=== PATIENT | male | born 1965 | race Caucasian/White ===

== ENCOUNTER 2025-04-15 09:56 | Outpatient (OUT) | payer OTHER, SELFPAY ==
--- NOTE | 2025-04-15 10:03 | ECG_ITS ---
[facility] Test Date: 2025-04-15 Pat Name: FARHAN MARCUS Department: Room: - Gender: Male Formation Fracturing Operator: : 1965 Requested By: ROBERT VALLEJO Order Number: [id number] Reading MD: GIOVANNI DUKE M.D. Measurements Intervals [place] Rate: 75 P: 49 VT: 165 QRS: 35 QRSD: 107 T: -9 QT: 442 QTc: 496 Interpretive Statements SINUS RHYTHM NONSPECIFIC T-WAVE ABNORMALITY PROLONGED QT INTERVAL Abnormal ECG No previous ECG available for comparison Electronically Signed On 04-15-2025 17:53:10 EDT by GIOVANNI DUKE M.D.
--- NOTE | 2025-04-15 10:20 | XR_ITS ---
The [address] [address] Patient Name: FARHAN MARCUS MRN: [id number] date: 1965 Sex: M Assigned Patient Location: [facility] Current Patient Location: [facility] Accession/Order Number: [id number] Exam Date: 04/15/2025 11:14 Report Date: 04/15/2025 11:16 At the request of: ROBERT VALLEJO MD Procedure: XR chest 2V PA AND LATERAL CHEST: CLINICAL HISTORY: Preop clearance COMPARISON: None There is a right pericardial fat pad. There is no focal parenchymal consolidation, effusion or pneumothorax. The cardiac, hilar and mediastinal silhouettes are within normal limits. There is no vascular congestion. The visualized bony thorax is intact. XR/XR chest 2V IMPRESSION: NO ACUTE CARDIOPULMONARY ABNORMALITY. Impression dictated by: Jocelyn Johnson M.D. 04/15/2025 11:16 AM Dictation Location: [place] [address] Electronically authenticated by: [id number] Y Date: 04/15/2025 11:16
[2025-04-15 11:07] LABS: Basophils Absolute Auto 0.1 10^3/uL (0.0-0.1); Basophils Percent Auto 0.7 % (0.2-2.0); Eosinophils Absolute Auto 0.1 10^3/uL (0.0-0.7); Eosinophils Percent Auto 1.6 % (0.9-7.0); Hematocrit 44.5 % (42.0-54.0); Hemoglobin 15.2 g/dL (14.0-18.0); Immature Granulocytes Abs Auto 0.01 10^3/uL (0.00-0.03); Immature Granulocytes Pct Auto 0.1 % (0.0-0.5); Lymphocytes Percent Auto 29.5 % (20.5-60.0); Mean Corpuscular HGB Conc 34.2 g/dL (29.9-35.2); Mean Corpuscular Hemoglobin 32.7 pg (25.9-34.0); Mean Corpuscular Volume 95.7 fL (80.0-94.0); Monocytes Absolute Auto 0.5 10^3/uL (0.3-0.8); Monocytes Percent Auto 7.8 % (1.7-12.0); Neutrophils Percent Auto 60.3 % (43.0-75.0); Platelet Count 188 10^3/uL (150-450); Red Blood Count 4.65 10^6/uL (4.70-6.10); Red Cell Distribution Width 14.3 % (11.0-15.0); White Blood Count 6.7 10^3/uL (4.0-11.0)
--- NOTE | 2025-04-15 11:18 | PM.PRESUREVA ---
History of Present Illness History of Present Illness Chief complaint: Right Kidney Stones Narrative: Patient presents for presurgical testing. The patient states he has been diagnosed with a kidney stone after hematuria workup. The patient states he has not had any visible blood in his urine and denies any urinary complaints today. Review of Systems ROS Narrative REVIEW OF SYSTEMS: Negative except as stated in HPI, ten or more systems reviewed. Constitutional: No fever, chills, weakness ENT: No sore throat or epistaxis Cardiovascular: No edema, chest pain, palpitations, or activity intolerance Respiratory: No shortness of breath, cough, or wheezing Musculoskeletal: No joint pain or swelling Gastrointestinal: No abdominal pain, constipation, diarrhea, or vomiting Genitourinary: No dysuria or hematuria Neurological: No numbness, tingling, weakness, or headache Psychiatric: No mood changes PFSH PFS Medical History (Updated 04/15/25 @ 10:39 by Maddi Hernandez NP) Angina pectoris (2010) ?I20.9 - Angina pectoris, unspecified (ICD-10) Prostatitis ?N41.9 - Inflammatory disease of prostate, unspecified (ICD-10) Plantar fasciitis ?M72.2 - Plantar fascial fibromatosis (ICD-10) Sleep apnea ?G47.30 - Sleep apnea, unspecified (ICD-10) Depression ?F32.A - Depression, unspecified (ICD-10) Lumbar radiculopathy ?M54.16 - Radiculopathy, lumbar region (ICD-10) Hypogonadism Hyperlipidemia ?E78.5 - Hyperlipidemia, unspecified (ICD-10) Hearing loss ?H91.90 - Unspecified hearing loss, unspecified ear (ICD-10) Glaucoma ?H40.9 - Unspecified glaucoma (ICD-10) Anxiety ?F41.9 - Anxiety disorder, unspecified (ICD-10) Erectile dysfunction ?N52.9 - Male erectile dysfunction, unspecified (ICD-10) Diabetic polyneuropathy ?E11.42 - Type 2 diabetes mellitus with diabetic polyneuropathy (ICD-10) Diabetes ?E11.9 - Type 2 diabetes mellitus without complications (ICD-10) Insomnia ?G47.00 - Insomnia, unspecified (ICD-10) CAD (coronary artery disease) ?I25.10 - Atherosclerotic heart disease of [place] coronary artery without angina pectoris (ICD-10) Hypertension ?I10 - Essential (primary) hypertension (ICD-10) Kidney stones ?N20.0 - Calculus of kidney (ICD-10) Surgical History (Updated 04/15/25 @ 10:38 by Maddi Hernandez NP) History of heart artery stent (2016) ?Z95.5 - Presence of coronary angioplasty implant and graft (ICD-10) History of heart artery stent (2010) ?Z95.5 - Presence of coronary angioplasty implant and graft (ICD-10) History of colonoscopy ?Z98.890 - Other specified postprocedural states (ICD-10) S/P cataract extraction and insertion of intraocular lens ?Z98.49 - Cataract extraction status, unspecified eye (ICD-10) ?Z96.1 - Presence of intraocular lens (ICD-10) H/O eye surgery ?Z98.890 - Other specified postprocedural states (ICD-10) Hx of tonsillectomy ?Z90.89 - Acquired absence of other organs (ICD-10) History of vasectomy ?Z98.52 - Vasectomy status (ICD-10) History of hernia repair ?Z98.890 - Other specified postprocedural states (ICD-10) ?Z87.19 - Personal history of other diseases of the digestive system (ICD-10) H/O cystoscopy ?Z98.890 - Other specified postprocedural states (ICD-10) History of appendectomy ?Z90.49 - Acquired absence of other specified parts of digestive tract (ICD-10) Family History (Updated 04/15/25 @ 10:36 by Maddi Hernandez NP) Other Family history of myocardial infarction Social History (Updated 04/15/25 @ 10:32 by Maddi Hernandez NP) Within the past year, how often did you have a drink containing alcohol: 4 or more times a week Within the past year, how many standard drinks containing alcohol did you have on a typical day: 1 or 2 Total score: 0 Score interpretation: A score less than 4 is consistent with normal alcohol consumption. 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 Highest level of school completed/degree received: Associate degree: occupational, technical, vocational program Meds Home Medications and Allergies Home Medications ?Medication ?Instructions ?Recorded ?Confirmed ?Type aspirin 81 mg tablet,delayed 81 mg PO DAILY 04/15/25 04/15/25 History release (Adult Aspirin Regimen) atorvastatin 20 mg tablet 20 mg PO DAILY 04/15/25 04/15/25 History dorzolamide 22.3 mg-timolol 6.8 1 drp ophthalmic (eye) BID 04/15/25 04/15/25 History mg/mL eye drops (Cosopt) lisinopril 10 mg tablet 10 mg PO QPM 04/15/25 04/15/25 History metformin 1,000 mg tablet 1,000 mg PO DAILY 04/15/25 04/15/25 History metoprolol tartrate 50 mg tablet 50 mg PO Q12H 04/15/25 04/15/25 History multivitamin (Daily Multi-Vitamin 1 tab PO DAILY 04/15/25 04/15/25 History tablet) pioglitazone 45 mg tablet 45 mg PO DAILY 04/15/25 04/15/25 History sertraline 50 mg tablet 50 mg PO DAILY 04/15/25 04/15/25 History tafluprost (PF) 0.0015 % eye drops 1 drp ophthalmic (eye) DAILY 04/15/25 04/15/25 History in a dropperette (Zioptan (PF)) tamsulosin 0.4 mg capsule (Flomax) 0.4 mg PO DAILY 04/15/25 04/15/25 History testosterone cypionate 200 mg/mL 200 mg IM .qmonth 04/15/25 04/15/25 History intramuscular oil tirzepatide 2.5 mg/0.5 mL 2.5 mg subcut QWEEK 04/15/25 04/15/25 History subcutaneous pen injector (Mehulunbrittniro) Allergies Allergy/AdvReac Type Severity Reaction Status Date / Time bupropion (From Wellbutrin) Allergy Agitated Verified 04/15/25 10:18 Exam Narrative Exam Narrative: Constitutional: Awake, alert, comfortable, well-appearing, nontoxic, interactive, vital signs as charted Head: Normocephalic, atraumatic Neck: Supple, normal appearance, normal range of motion, no meningeal signs, no lymphadenopathy Respiratory: No respiratory distress, breath sounds clear Cardiovascular: Regular rate and rhythm, strong and regular heart tones Abdomen: Nontender, normal bowel sounds, soft, no CVA tenderness Musculoskeletal: Normal gait, no swelling or edema Skin: No rashes or induration, no lesions, only visible skin inspected Neuro: No neurological deficits, normal sensation Psychiatric: Oriented ?3, normal affect Assessment and Plan Assessment and Plan (1) Kidney stones: Plan Right ESWL, possible cystoscopy with right stent placement scheduled with Dr. Satnos April 29, 2025.
[2025-04-15 11:20] LABS: Anion Gap 12.2; Calcium 9.2 mg/dL (8.5-10.1); Carbon Dioxide 27.5 mmol/L (21.0-32.0); Chloride 104 mmol/L (98-107); Estimated GFR (African America >60 (>=60 mL/min/1.73m^2); Estimated GFR (Non-African Ame >60 (>=60 mL/min/1.73m^2); Glucose 118 mg/dL (74-106); Potassium 3.7 mmol/L (3.5-5.1); Sodium 140 mmol/L (136-145)
[2025-04-15 11:26] LABS: INR 1.03; Partial Thromboplastin Time 29.9 sec (22.3-36.2); Prothrombin Time 10.9 sec (9.0-11.6)
== END 2025-04-15 09:57 | disposition home or self-care (01) ==
LOC: PST 09:57
PROVIDERS: PCP Family Medicine; Visit Provider Urology
DX: Z01.810 Encounter for preprocedural cardiovascular examination (principal); Z01.812 Encounter for preprocedural laboratory examination; Z01.818 Encounter for other preprocedural examination; N20.0 Calculus of kidney; E78.5 Hyperlipidemia, unspecified
CPT/HCPCS: 36415; 71046; 80048; 85025; 85610; 85730; 93005; G0463

== ENCOUNTER 2025-04-29 09:53 | Day surgery (SDC) | payer OTHER, SELFPAY ==
--- OUTSIDE RECORDS SUMMARY | 2015-07-08 10:30 | XMS_ITS | Encounter Summary ---
Author Organization [facility] Address [address] [place] [address] Care Team Providers Care Managed Care Coordinator Name Role Phone Ismael Arteaga MD Primary Care Provider [phone] [phone] Encounter Details Date Type Department Care Team (Late st Contact Info) Description 07/08/2015 10:30 AM EDT Hospital Encounter [facility] Occupational Therapy [address] [place] [address] Ismael Arteaga MD [address] [place] [address] Margaret Cosme OT Social History Tobacco Use Types Packs/Day Years Used Date Smoking Tobacco: Former Cigarettes Q uit: 2006 Smokeless Tobacco: Never Alcohol Use Standard Drinks/Week Comments Yes 0 (1 standard drink = 0.6 oz pur e alcohol) Sex and Gender Information Value Date Recorded Sex Assigned at Not on file Legal Sex Male 7:46 PM EST Gender Identity Not on file Sexual Orientation Not on file documented as of this encounter Progress Notes * Margaret Dillon OT - 07/08/2015 12:16 PM EDT Occupational Therapy Fabricated new R wrist/thumb spica splint for pt d/t complications w/ splint made yesterday 07/07/15. Pt reminded of splint care and wear schedule, verbalizes understanding. No additional charges thisdate. EVELIA Leary OTR/Adri 07/08/15 10:35am-11:15am documented in this encounter Plan of Treatment Not on file documented as of this encounter Visit Diagnoses Not on filedocumented in this encounter Care Teams Managed Care Coordinator Relationship Specialty Start Date End Date Ismael Arteaga MD PCP - General 06/29/15 documented as of this encounter
--- OUTSIDE RECORDS SUMMARY | 2015-07-19 14:45 | XMS_ITS | Encounter Summary ---
Author Organization [facility] Address [address] [place] [address] Care Team Providers Care Linux Systems Administrator Name Role Phone Ismael Arteaga MD Primary Care Provider [phone] [phone] Encounter Details Date Type Department Care Team (Late st Contact Info) Description 07/19/2015 2:45 PM EDT Hospital Encounter [facility] Occupational Therapy [address] [place] [id number] Ismael Arteaga MD [address] [place] [address] Margaret Cosme, OT Social History Tobacco Use Types Packs/Day [...] Progress Notes * Margaret Dillon OT - 07/19/2015 4:27 PM EDT Images from the original note were not included. [facility] Outpatient Occupational Therapy Daily Note Date: 07/19/2015 Referring Practitioner: Dr. Ismael Arteaga Diagnosis: Right De Quervain's Tenosynovitis & Right Carpal Tunnel Syndrome Onset Date: 07/05/15 OT Insurance Information: POC expires 08/09/15 Total # of Visits Approved: 12 Per Physician Order Total # of Visits to Date: 5 No Show: 0 Canceled Appointment: 0 Pre-Treament Pain: Pain at present: 0 Subjective: Pt states he has an interview for a job in [place] at [employer] Objective Exercises/Modalities: See DocFlow Sheet Assessment Comments: Pt states he has appointment w/ Dr. Arteaga on Jul.28. Pt states he has done only half ofhis HEP, states I haven't done as much as I probably should . When asked how often pt is wearing thumb/wrist spica splint, pt truthfully answers Probably only a couple hours a day . Pt states he isnot wearing splint during activities, states I can't do anything with it on, so I take it off . Ptdenies any pain w/ activity when not wearing it. Pt denies any pain, states I just have tingling & some numbess in my fingers . Specifically D3 & D4, denies any pain in the thumb or wrist. Tolerates joint blocking to thumb w/o any pain. Pt completes fine motor tasks with use of digits and thumb and states no pain. Pt completes screws & washers activity, pt completes activity w/ ease and no c/o pain with activity. Pt states he feels he doesn't think therapy is necessary. Pt has shown no major deficits in ROM or strength, encouraged pt to attend appointment w/ Dr. Arteaga and then wewill discuss possible d/c from OT based on physicians recommendations. 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 Time In: 1500 Time Out: 1545 Timed Code Treatment Minutes: 37 Minutes Total Treatment Time: 45 Margaret Dillon Therapy License Number: MOT, OTR/L Date: 07/19/2015 documented in this encounter Plan of Treatment Not on file documented as of this encounter Visit Diagnoses Not on filedocumented in this encounter Care Teams Linux Systems Administrator Relationship Specialty Start Date End Date Ismael Arteaga MD PCP - General 06/29/15 documented as of this encounter
[2025-04-15 11:05] VITALS: BP 121/78; PULSE 79; TEMP 36.5; O2SAT 97; BMI 34.2
[2025-04-29] VITALS (10 sets, daily range): BP systolic 114–167; BP diastolic 73–89; PULSE 55–85; TEMP 36.1–36.2; O2SAT 92–97; BMI 34.7
--- NOTE | 2025-04-29 08:45 | XR_ITS ---
The [address] [address] Patient Name: FARHAN MARCUS MRN: [id number] date: 1965 Sex: M Assigned Patient Location: [facility] Current Patient Location: [facility] Accession/Order Number: [id number] Exam Date: 04/29/2025 10:24 Report Date: 04/29/2025 10:27 At the request of: ROBERT VALLEJO MD Procedure: XR abdomen 1V SINGLE VIEW ABDOMEN CLINICAL DATA: Preoperative planning. Kidney stones. COMPARISON: None Supine views of the abdomen and pelvis were obtained. There is mild air and stool within the colon. There is small bowel air, without disproportionate distention. No definite radiopaque renal stones are visualized in the left. On the right, there are 2 stones at the lower portion of the kidney in close proximity measuring 12 and 9 mm in size. There is also question of a third tiny stone on that side measuring 3 mm . There are no suspect ureteral stones. No soft tissue masses are seen. There are minor degenerative changes at the spine. XR/XR abdomen 1V IMPRESSION: RIGHT NEPHROLITHIASIS. Impression dictated by: Jocelyn Johnson M.D. 04/29/2025 10:27 AM Dictation Location: [place] [address] Electronically authenticated by: [id number] Y Date: 04/29/2025 10:27
--- OUTSIDE RECORDS SUMMARY | 2025-04-29 09:56 | XMS_ITS | Clinical Summary ---
Author Organization [facility] Address [address] [place] [address] Care Team Providers Care Crusher Screen Repairer Name Role Phone Ismael Arteaga MD Primary Care Provider [phone] [phone] Allergies Active Allergy Reactions Criticality Noted Date Comments Bupropion Unknown Medium 02/19/2022 Medications metFORMIN (GLUMETZA) 1000 MG (MOD) 24 hr tablet Take 1 (one) tablet (1,000 mg total) by mouth daily with breakfast . Active lisinopril (PRINIVIL,ZESTR IL) 5 MG tablet Take 1 (one) tablet (5 mg total) by mouth daily . Active atorvastatin (LIPITOR) 10 MG tablet Take 2 (two) tablets (20 mg total) by mouth at bedtime . Active latanoprost (XALATAN) 0.005 % ophthalmic solution Administer 1 (one) drop to both eyes nightly . Active dorzolamide-waleska oloL (COSOPT) 22.3-6.8 mg/mL ophthalmic solution Administer 1 (one) drop to both eyes 2 (two) times a day . Active metoprolol tartrate (LOPRESSOR) 50 MG tablet Take 1 (one) tablet (50 mg total) by mouth 2 (two) times a day . Active pioglitazone (ACTOS) 45 MG tablet Take 1 (one) tablet (45 mg total) by mouth nightly . Active aspirin 81 MG EC tablet Take 1 (one) tablet (81 mg total) by mouth daily . Active sertraline (Zoloft) 25 MG tablet Take 2 (two) tablets (50 mg total) by mouth nightly . Active multivitamin with minerals tablet Take 1 (one) tablet by mouth daily . Active testosterone (ANDROGEL) 12.5 mg/ 1.25 gram (1 %) GlPm daily . 3 Active dorzolamide-waleska olol, PF, (Cosopt, PF,) 2-0.5 % Dpet Administer 1 drop to both eyes 2 (two) times a day . 60 each 11 4 Active tafluprost, PF, (Zioptan, PF,) 0.0015 % Dpet Administer 1 drop to both eyes at bedtime . 60 each 11 4 Active Active Problems Problem Noted Date Diagnosed Date Primary open angle glaucoma (POAG) of left eye, moderate stage 05/14/2024 Nuclear sclerotic cataract of both eyes 03/30/20 24 Primary open angle glaucoma (POAG) of right eye, moderate stage 08/12/2023 Family History * Patient is adopted Medical History Relation Comments Heart disease Brother Lung cancer Brother Glaucoma Neg Hx Macular degeneration Neg Hx Retinal detachment Neg Hx Relation Status Comments Brother Social History Tobacco Use Types Packs/Day Years Used Date Smoking Tobacco: Former Cigarettes 1.5 20 1 986 - 2005 Smokeless Tobacco: Never Tobacco Cessation:Counseling Given: Not Answered Alcohol Use Standard Drinks/Week Comments Yes 0 (1 standard drink = 0.6 oz pur e alcohol) wiskey-1-2 glass every night AUDIT-C Answer Date Recorded Frequency of Alcohol Consumption Never 05/24/2019 Average Number of Drinks Not on file 019 Frequency of Binge Drinking Not on file 04/28 Sex and Gender Information Value Date Recorded Sex Assigned at Not on file Legal Sex Male 6:25 PM EDT Gender Identity Male 05/24/2019 10:05 AM EDT Sexual Orientation Straight 05/24/2019 10 :16 AM EDT Last Filed Vital Signs Vital Sign Reading Time Taken Comments Blood Pressure 157/86 06/03/2024 2:01 PM EDT Pulse 65 06/03/2024 2:02 PM EDT Temperature 36.4 C (97.6 F) 06/03/2024 2:01 PM EDT Respiratory Rate 12 06/03/2024 2:01 PM EDT Oxygen Saturation 93% 06/03/2024 2:02 PM EDT Inhaled Oxygen Concentration - - Weight 104.3 kg (230 lb) 05/26/2024 4:21 PM EDT Height 175.3 cm (5' 9 ) 05/26/2024 4:21 PM EDT Body Mass Index 33.97 05/26/2024 4:21 PM EDT Plan of Treatment Upcoming Encounters Date Type Department Care Team (Late st Contact Info) Description 05/28/2025 10:30 AM EDT Office Visit [facility] Ophthalmology [address] [place] [address] Brandon Spicer MD [address] [place] [address] Health Maintenance Due Date Last Done Comments A1C 1965 CT Colonography 1965 Colonoscopy 1965 Colorectal Cancer Screening/Monitoring 1965 Fecal DNA 1965 Fecal occult blood test (FOBT,FIT) 1965 PSA Level 1965 Wellness Visit 1970 Diabetic Foot Exam 1977 Urine (micro)albumin/creatin ine ratio - Diabetes 1977 eGFR Diabetes 1977 Depression Screening/Follow- Up (PHQ-2/9) 1979 HIV Screening 1982 Hepatitis C Screening 1985 Flexible sigmoidoscopy 2017 COVID-19 Vaccine (2023-2 5 season) 2024 09/14/2021, 01/02/2021 Influenza Vaccine (#1) 2025 , 08/05/2023, 09/07/2022, Additional history exists Diabetic Eye Exam 01/08/2026 01/08/2025 Tetanus: Every 10yrs 08/21/2034 08/21/2024 Zoster Vaccines Completed 02/24/2024, 01/26, 08/05/2023 Pneumococcal Vaccine: Age 50+ Completed , 08/15/2018, 08/22/2012, Additional history exists Medical Devices Implanted Type Area Epic [employer] Device Identifier Shelf Expiration Date Model / Serial / Lot Ahmed Glaucoma Valve Implanted:Qty: 1 on 08/21/2023 by Brandon Spicer MD at [facility] Right: Eye [facility] [id number] 02/03/2025 MODEL FP7 / [id number] / [id number] [employer] Processed Sclera Implanted:Qty: 1 on 08/21/2023 by Brandon Spicer MD at [facility] Right: Eye 08/27/2027 [id number] / / [id number] Lens 15.5 Intraocular [employer] Blf [place] - [id number] Implanted:Qty: 1 on 04/08/2024 by Brandon Spicer MD at [facility] Right: Eye [employer] [id number] 03/25/2026 CNA0T0.155 / [id number] / Lens 14.5 Intraocular [employer] Bl Clare - [id number] Implanted:Qty: 1 on 06/03/2024 by Brandon Spicer MD at [facility] Left: Eye [employer] [id number] 04/29/2026 CNA0T0 .145 / [id number] / Insurance [employer] HMO/NTWK/OACCESS/OA+/POS Care Teams Crusher Screen Repairer Relationship Specialty Start Date End Date Ismael Arteaga MD [address] [place] [id number] PCP - General Family Medicine 05/24/19
--- OUTSIDE RECORDS SUMMARY | 2025-04-29 09:56 | XMS_ITS | Encounter Summary ---
Author Organization [facility] Address [address] [place] [address] Phone Care Team Providers Care Glass Toughening Operator Name Role Phone Ismael Arteaga MD Primary Care Provider [phone] [phone] Encounter Details Date Type Department Care Team (Late st Contact Info) Description 02/29/2020 Orders Only [facility] [address] [place] [address] Conversion, Onbase Social History Tobacco Use Types Packs/Day Years Used Date Smoking Tobacco: Never Assessed Sex and Gender Information Value Date Recorded Sex Assigned at Not on file Legal Sex Male 7:53 AM EST Gender Identity Not on file Sexual Orientation Not on file documented as of this encounter Plan of Treatment Upcoming Encounters Date Type Department Care Team (Late st Contact Info) Description 07/02/2025 11:00 AM EDT Office Visit [place] [address] [place] [address] Helen Tse MD [address] [facility] [address] [place] [address] Scheduled Orders Name Type Priority Associated Diagnoses Orde r Schedule OUTSIDE LAB SCAN Lab Ordered: 02/29/2020 documented as of this encounter Visit Diagnoses Not on filedocumented in this encounter Care Teams Glass Toughening Operator Relationship Specialty Start Date End Date Ismael Arteaga MD PCP - General 10/28/99 documented as of this encounter
--- OUTSIDE RECORDS SUMMARY | 2025-04-29 09:56 | XMS_ITS | Encounter Summary ---
Author Organization [facility] Address [address] [place] [address] Phone Care Team Providers Care Manager Hydraulic Name Role Phone Ismael Arteaga MD Primary Care Provider [phone] [phone] Encounter Details Date Type Department Care Team (Late st Contact Info) Description 09/11/2024 Scanned Document [facility] [address] [place] [id number] Scanning, Generic Provider Social History Tobacco Use Types Packs/Day Years Used Date Smoking Tobacco: Former Cigarettes S tarted: 2006 Smokeless Tobacco: Never Alcohol Use Standard Drinks/Week Comments Yes 7 (1 standard drink = 0.6 oz pur [...] Description 07/02/2025 11:00 AM EDT Office Visit [place] [address] [place] [address] Helen Tse MD [address] [facility] [address] [place] [address] documented as of this encounter Procedures Procedure Name Priority Date/Time Associated Diagnosis Comments OUTSIDE LAB SCAN 09/11/2024 documented in this encounter Results * OUTSIDE LAB SCAN (09/11/2024) Narrative 09/11/2024 Ordered by an unspecified provider. us Generic Provider Scanning OUTSIDE SCAN Final Result documented in this encounter Visit Diagnoses Not on filedocumented in this encounter Care Teams Manager Hydraulic Relationship Specialty Start Date End Date Ismael Arteaga MD PCP - General 10/28/99 documented as of this encounter
--- OUTSIDE RECORDS SUMMARY | 2025-04-29 09:56 | XMS_ITS | Clinical Summary ---
Author Organization [facility] Address [address] [place] [address] Care Team Providers Care Risk Mgr Name Role Phone Ismael Arteaga MD Primary Care Provider [phone] Allergies No known active allergies Medications metoprolol tartrate (LOPRESSOR) 50 MG tablet Take 50 mg by mouth Take one twice a day 0 Active atorvastatin (LIPITOR) 20 MG tablet Take one daily 1 Active metFORMIN (GLUCOPHAGE) 1000 MG tablet Take 1,000 mg by mouth Take one tablet twice a day 0 Active lisinopril (PRINIVIL;ZESTR IL) 5 MG tablet Take one daily 1 Active LATANOPROST OP 1 drop, Eye-Both, Daily, Refill(s) 0, Ocular congestion 0 Active citalopram (CELEXA) 20 MG tablet Take 20 mg by mouth Take one tab daily 0 Active pioglitazone (ACTOS) 45 MG tablet Take one daily 1 Active Active Problems No known active problems Immunizations Immunization Administration Dates Next Due COVID-19, J&J, (age 18y+), IM, 0.5 mL 01/02/2021 Pneumococcal, PPSV23, PNEUMO VAX 23, (age 2y+), SC/IM, 0.5mL 08/22/2012 Family History Relation Name Status Comments Father Alive Mother Alive Social History Tobacco Use Types Packs/Day Years [...] on file Sexual Orientation Not on file Last Filed Vital Signs Vital Sign Reading Time Taken Comments Blood Pressure 132/86 02/04/2021 10:03 AM EDT Pulse 82 02/04/2021 10:03 AM EDT Temperature 36.9 C (98.5 F) 02/04/2021 10:03 AM EDT Respiratory Rate - - Oxygen Saturation 96% 02/04/2021 10:03 AM EDT Inhaled Oxygen Concentration - - Weight 103 kg (227 lb) 02/04/2021 10:03 AM EDT Height - - Body Mass Index - - Plan of Treatment Not on file Insurance Care Teams Risk Mgr Relationship Specialty Start Date End Date Ismael Arteaga MD PCP - General 06/29/15
--- OUTSIDE RECORDS SUMMARY | 2025-04-29 09:57 | XMS_ITS | Encounter Summary ---
Author Organization [facility] Address [address] [place] [address] Phone Care Team Providers Care Spinning Operator Name Role Phone Ismael Arteaga MD Primary Care Provider [phone] Encounter Details Date Type Department Care Team (Late st Contact Info) Description 03/30/2020 Orders Only [facility] [address] [place] [address] Conversion, Onbase Social History Tobacco Use Types [...] Description 07/02/2025 11:00 AM EDT Office Visit [place] [address] [facility] [address] [place] [address] Helen Tse MD [address] [facility] [address] [place] [address] Scheduled Orders Name Type Priority Associated Diagnoses Orde r Schedule OUTSIDE LAB SCAN Lab Ordered: 03/30/2020 documented as of this encounter Visit Diagnoses Not on filedocumented in this encounter Care Teams Spinning Operator Relationship Specialty Start Date End Date Ismael Arteaga MD PCP - General 10/28/99 documented as of this encounter
--- OUTSIDE RECORDS SUMMARY | 2025-04-29 09:57 | XMS_ITS | Clinical Summary ---
Author Organization [facility] Address [address] [place] [address] Care Team Providers Care Rv Body Mechanic Name Role Phone Unavailable Primary Care Provider Unavailabl e Social History Tobacco Use Types Packs/Day Years Used Date Smoking Tobacco: Never Assessed Sex and Gender Information Value Date Recorded Sex Assigned at Not on file Legal Sex Male 11:15 PM EDT Gender Identity Not on file Sexual Orientation Not on file Last Filed Vital Signs Vital Sign Reading Time Taken Comments Blood Pressure - - Pulse - - Temperature - - Respiratory Rate - - Oxygen Saturation - - Inhaled Oxygen Concentration - - Weight 105 kg (231 lb 12.8 oz) 09/01/2021 12:00 PM EDT Height 175.3 cm (5' 9 ) 09/01/2021 12:00 PM EDT Body Mass Index 34.23 09/01/2021 12:00 PM EDT Plan of Treatment Not on file Insurance [employer]
--- OUTSIDE RECORDS SUMMARY | 2025-04-29 09:57 | XMS_ITS | Clinical Summary ---
Author Organization [facility] Address [address] [place] [address] Phone Care Team Providers Care Visualization Developer Name Role Phone Ismael Arteaga MD Primary Care Provider [phone] Allergies Active Allergy Reactions Criticality Noted Date Comments Bupropion Agitation Medium 02/19/2022 Medications aspirin 81 mg EC tablet Take 1 tablet (81 mg) by mouth once daily. Active dorzolamide-timol oL (Cosopt) 22.3-6.8 mg/mL ophthalmic solution Administer 1 drop into both eyes every 12 hours. 2 Active latanoprost (Xalatan) 0.005 % ophthalmic solution Administer 1 drop into both eyes once daily. 2 Active metFORMIN (Glucophage) 1,000 mg tablet Take 1 tablet (1,000 mg) by mouth once daily. 2 Active metoprolol tartrate (Lopressor) 50 mg tablet Take 1 tablet by mouth every 12 hours. 2 Active pioglitazone (Actos) 45 mg tablet Take 1 tablet (45 mg) by mouth once daily. 2 Active sertraline (Zoloft) 50 mg tablet Take 1 tablet (50 mg) by mouth once daily. 2 Active multivitamin (Daily Multi-Vitamin) tablet Take 1 tablet by mouth once daily. Active brimonidine (AlphaGAN) 0.2 % ophthalmic solution Administer 1 drop into affected eye(s) 3 times a day. 3 Active testosterone (Androgel) 12.5 mg/ 1.25 gram (1 %) gel in metered-dose pump Place 2 Pump (25 mg) on the skin once daily. 3 Active nitroglycerin (Nitrostat) 0.4 mg SL tabletIndications :Coronary artery disease involving [place] coronary artery of [place] heart without angina pectoris,Coronary angioplasty status Place 1 tablet (0.4 mg) under the tongue every 5 minutes if needed for chest pain. 100 tablet 1 4 07/17/20 25 Active lisinopril 10 mg tabletIndications :Essential hypertension Take 1 tablet (10 mg) by mouth once daily. 90 tablet 3 4 07/17/20 25 Active atorvastatin (Lipitor) 40 mg tablet Take 1 tablet (40 mg) by mouth once daily. Active Active Problems Problem Noted Date Diagnosed Date BMI 36.0-36.9,adult 07/17/2024 Former smoker 07/17/2024 Abnormal EKG 08/09/2023 CAD (coronary artery disease) 08/09/2023 Cardiomyopathy 08/09/2023 Chest pain 08/09/2023 Coronary angioplasty status 08/09/2023 Diabetes mellitus (Multi) 08/09/2023 Essential hypertension 08/09/2023 Hyperlipidemia 08/09/2023 Family History * Patient is adopted Medical History Relation Name Comments Cancer Brother Heart attack Brother Relation Name Status Comments Brother Social History Tobacco Use Types Packs/Day Years Used Date Smoking Tobacco: Former Cigarettes S tarted: 2005 Smokeless Tobacco: Never Alcohol Use Standard Drinks/Week Comments Yes 7 (1 standard drink = 0.6 oz pur e alcohol) Sex and Gender Information Value Date Recorded Sex Assigned at Not on file Legal Sex Male 7:53 AM EST Gender Identity Not on file Sexual Orientation Not on file Last Filed Vital Signs Vital Sign Reading Time Taken Comments Blood Pressure 138/77 07/17/2024 2:03 PM EDT Pulse 64 07/17/2024 1:29 PM EDT Temperature - - Respiratory Rate - - Oxygen Saturation - - Inhaled Oxygen Concentration - - Weight 111 kg (244 lb) 07/17/2024 1:29 PM EDT Height 175.3 cm (5' 9 ) 07/17/2024 1:29 PM EDT Body Mass Index 36.03 07/17/2024 1:29 PM EDT Plan of Treatment Upcoming Encounters Date Type Department Care Team (Late st Contact Info) Description 07/02/2025 11:00 AM EDT Office Visit [place] [address] [place] [address] Helen Tse MD [address] [place] [address] Health Maintenance Due Date Last Done Comments CT Colonography 1967 Colonoscopy 1967 Colorectal Cancer Screening 1967 Diabetes: Hemoglobin A1C 1967 Diabetes: Urine Protein Screening 1967 FIT-DNA (Cologuard) 1967 FIT 1967 HIV Screening 1967 Lipid Panel 1967 Sigmoidoscopy 1967 Yearly Adult Physical 1967 Diabetes: Retinopathy Screening 1977 Hepatitis C Screening 1985 Hepatitis B Vaccines (1 of 3 - 19+ 3-dose series) 1986 DTaP/Tdap/Td Vaccines (1 - Tdap) 1989 Pneumococcal Vaccine (2 of 2 - PCV) 08/15/2019 08/15/2018, 08/22/2012, 10/28/2011 MMR Vaccines (1 of 1 - Standard series) 09/07/2019 COVID-19 Vaccine (3 - season) 2024 09/14/2021, 01/02/2021 Influenza Vaccine (Season Ended) 2025 08/05/2023, 09/07/2022, 09/01/2021, Additional history exists Zoster Vaccines Completed 02/24/2024, 01/26, 08/05/2023 HIB Vaccines Aged Out No longer eligi ble based on patient's age to complete this topic HPV Vaccines (No Doses Required) Completed Hepatitis A Vaccines Aged Out No long er eligible based on patient's age to complete this topic IPV Vaccines Aged Out No longer eligi ble based on patient's age to complete this topic Meningococcal Vaccine Aged Out No sakina perla eligible based on patient's age to complete this topic Rotavirus Vaccines Aged Out No longer eligible based on patient's age to complete this topic Insurance NA [employer] Care Teams Visualization Developer Relationship Specialty Start Date End Date Ismael Arteaga MD PCP - General 10/28/99
[2025-04-29] MEDS: CEFAZOLIN SODIUM 2 GM/50 ML D5W PREMIX IV (11:35)
--- NOTE | 2025-04-29 12:17 | PM.URSON ---
Urology Surgery Operative Note Operative Note Procedure Date: 04/29/25 Time Out Performed: yes Pre-op Diagnosis: Right nephrolithiasis Post-op Diagnosis: same as pre-op Procedures performed: 1. Right ESWL. Anesthesia: General-LMA Primary Surgeon: João Santos Complications: None none Estimated blood loss (mL): 0 Findings: 1 cm right nonobstructing renal calculus Specimens: None Drains: None Indications for Procedures: This gentleman has a nonobstructing right renal calculus. He now presents for right ESWL. He has signed an informed consent after risks were explained. Some of these risks include bleeding, perinephric hematoma, infection and anesthesia to name a few Detailed description of Procedure: The patient was brought to the Operating Room and placed on Siemens electromagnetic lithotripsy treatment table in the supine position. SCDs were placed on their lower extremities and turned on and functioning during the entire case. Timeout was done by all parties in the room. We all agreed upon the patient's identification and the planned procedures for this patient. General Anesthesia was then administered via LMA. Treatment head was then brought to the patient's correct side. While using flourscopy the stone was identified and lined up into the crosshairs. We then began applying shocks. I started at a power level 2.0 and increased to a maximum power level of 3.5. Intermittent fluoroscopy revealed that the stone was slow to fragment. By 2000 shocks we had significant fragmentation. He did experience some ectopy. We had to stop the procedure and reposition him a few times. We never had to gate the procedure. At 3000 shocks there was no visible stone remaining by fluoroscopy. The procedure was terminated at that point. [facility] then [facility] and wheeled to PACU in stable condition.
--- NOTE | 2025-04-29 13:03 | PC.NURSE ---
Bruising noted right flank area
--- NOTE | 2025-04-29 13:40 | PC.NURSE ---
Patient up to use bathroom. unable to urinate at this time. IV fluids continue and patient continues to drink fluids. Call light within reach and family remains at bedside.
== END 2025-04-29 14:15 | disposition home or self-care (01) ==
LOC: SURGOUT 09:54
PROVIDERS: PCP Family Medicine; Visit Provider Urology
PROC: (CPT 873; principal; 2025-04-29 11:15)
DX: N20.0 Calculus of kidney (principal); E78.5 Hyperlipidemia, unspecified; F32.A Depression, unspecified; E29.1 Testicular hypofunction; I10 Essential (primary) hypertension; E11.9 Type 2 diabetes mellitus without complications; Z79.01 Long term (current) use of anticoagulants; I25.10 Atherosclerotic heart disease of native coronary artery without angina pectoris; F41.9 Anxiety disorder, unspecified; I25.2 Old myocardial infarction; Z90.49 Acquired absence of other specified parts of digestive tract; Z98.52 Vasectomy status; Z95.5 Presence of coronary angioplasty implant and graft; Z79.82 Long term (current) use of aspirin; Z79.84 Long term (current) use of oral hypoglycemic drugs; Z87.891 Personal history of nicotine dependence; G47.33 Obstructive sleep apnea (adult) (pediatric); M54.16 Radiculopathy, lumbar region
CPT/HCPCS: 50590; 36415; 74018; 82948; J0690; J1100; J1885; J2250; J2405; J2704; J3010